=== PATIENT | female | born 2000 ===

== ENCOUNTER 2019-01-24 05:29 | Emergency (ER) | payer BC ==
[2019-01-24 05:42] VITALS: BP 120/80; PULSE 107; TEMP 97.9; BMI 22.3
[2019-01-24] MEDS ORDERED: PHENAZOPYRIDINE HCL 100 MG TABLET (FP) PO ONE (05:53)
[2019-01-24] MEDS ORDERED: PHENAZOPYRIDINE HCL 100 MG TABLET (FP) ONE (05:56)
[2019-01-24] MEDS ORDERED: NITROFURANTOIN MACROCRYSTAL 50 MG CAPSULE (FP) ONE (05:56)
--- NOTE | 2019-01-24 05:58 | PDOC ---
History of Present Illness - General Chief Complaint: Urinary Problem Stated Complaint: URINARY SYMPTOMS Time Seen by Provider: 01/24/19 05:46 History Source: Patient Exam Limitations: No Limitations - History of Present Illness Initial Comments: 01/24/19 05:55 dysuria and frequency Timing/Duration: reports: getting worse Quality: reports: moderate, burning Abdominal Pain Onset Location: reports: suprapubic Pain Radiation: reports: no radiation Activities at Onset: reports: none Treatment Prior to Arrive: worse with: analgesics Aggravating Factors: improves with: Voiding Alleviating Factors: improves with: None Past History - Past Medical History Allergies/Adverse Reactions: Allergies Allergy/AdvReac Type Severity Reaction Status Date / Time No Known Allergies Allergy Verified 01/24/19 05:31 Home Medications: Ambulatory Orders Fluoxetine HCl [Prozac -] 0 mg PO DAILY 01/24/19 Lo Loestrin Fe 1-10 Tablet 0 mg PO DAILY 01/24/19 Nitrofurantoin Monohyd/M-Cryst [Macrobid -] 100 mg PO BID #6 capsule 01/24/19 Phenazopyridine HCl [Pyridium] 200 mg PO TID PRN #6 tablet 01/24/19 COPD: No Other medical history: Pt denies. Comment:: 01/24/19 05:56 denies - Psycho Social/Smoking Cessation Hx Smoking History: Never smoked Have you smoked in the past 12 months: No Information on smoking cessation initiated: No Hx Alcohol Use: No Drug/Substance Use Hx: Yes (Marijuana) Review of Systems - Review of Systems Able to Perform ROS?: Yes : Yes: Burning, Dysuria, Frequency. No: Lesions All Other Systems: Reviewed and Negative *Physical Exam - Vital Signs Last Vital Signs Temp Pulse Resp BP Pulse Ox 97.9 F 107 H 19 120/80 99 01/24/19 05:36 01/24/19 05:36 01/24/19 05:36 01/24/19 05:36 01/24/19 05:36 - Physical Exam General Appearance: Yes: Nourished, Appropriately Dressed HEENT: positive: Normal Voice Respiratory/Chest: positive: Lungs Clear Cardiovascular: positive: Regular Rhythm Gastrointestinal/Abdominal: negative: Tender, Distended, Rebound, Tenderness Musculoskeletal: positive: Normal Inspection Extremity: positive: Normal Capillary Refill Integumentary: positive: Normal Color Neurologic: positive: Fully Oriented Medical Decision Making - Medical Decision Making 01/24/19 05:58 symptoma c/w uti check hcg abx Discharge - Discharge Information Problems reviewed: Yes Clinical Impression/Diagnosis: UTI (urinary tract infection) Qualifiers: Urinary tract infection type: acute cystitis Hematuria presence: without hematuria Qualified Code(s): N30.00 - Acute cystitis without hematuria Condition: Good Disposition: HOME - Follow up/Referral - Patient Discharge Instructions Patient Printed Discharge Instructions: DI for Urinary Tract Infection (UTI) - Post Discharge Activity
[2019-01-24] MEDS ORDERED: NITROFURANTOIN MACROCRYSTAL 50 MG CAPSULE (FP) PO SCH (06:00)
[2019-01-24 06:21] LABS: EPI CELLS 10.4 /HPF (0-5/HPF); PH,URINE 5.5 (5.0-8.0); URINE APPEARANCE TURBID; URINE BACTERIA 216.3 /hpf (NEGATIVE); URINE BILIRUBIN NEGATIVE (NEGATIVE); URINE COLOR YELLOW; URINE GLUCOSE (UA) NEGATIVE (NEGATIVE); URINE KETONE NEGATIVE (NEGATIVE); URINE LEUK ESTERASE 3+ (NEGATIVE); URINE NITRITE NEGATIVE (NEGATIVE); URINE PROTEIN 3+ (NEGATIVE); URINE RBC 522 /hpf (0-4); URINE WBC 4316 /hpf (0-5)
--- NOTE | 2019-01-24 06:25 | PDOC ---
History of Present Illness - General Chief Complaint: Urinary Problem Stated Complaint: URINARY SYMPTOMS Time Seen by Provider: 01/24/19 05:46 Past History - Past Medical History Allergies/Adverse Reactions: Allergies Allergy/AdvReac Type Severity Reaction Status Date / Time No Known Allergies Allergy Verified 01/24/19 05:31 Home Medications: Ambulatory Orders Fluoxetine HCl [Prozac -] 0 mg PO DAILY 01/24/19 Lo Loestrin Fe 1-10 Tablet 0 mg PO DAILY 01/24/19 Nitrofurantoin Monohyd/M-Cryst [Macrobid -] 100 mg PO BID #6 capsule 01/24/19 Phenazopyridine HCl [Pyridium] 200 mg PO TID PRN #6 tablet 01/24/19 COPD: No Other medical history: Pt denies. - Reproductive History Is Patient Now?: No (#): 0 Para: 0 - Psycho Social/Smoking Cessation Hx Smoking History: Never smoked Have you smoked in the past 12 months: No Information on smoking cessation initiated: No Hx Alcohol Use: No Drug/Substance Use Hx: Yes (Marijuana) *Physical Exam - Vital Signs Last Vital Signs Temp Pulse Resp BP Pulse Ox 97.9 F 107 H 19 120/80 99 01/24/19 05:36 01/24/19 05:36 01/24/19 05:36 01/24/19 05:36 01/24/19 05:36 ED Treatment Course - ADDITIONAL ORDERS Additional order review: Laboratory Results 01/24/19 01/24/19 05:48 05:46 Urine Color Yellow Urine Appearance Turbid Urine pH 5.5 Ur Specific [place] 1.024 Urine Protein 3+ H Urine Glucose (UA) Negative Urine Ketones Negative Urine Blood 3+ H Urine Nitrite Negative Urine Bilirubin Negative Urine Urobilinogen 1.0 Ur Leukocyte Esterase 3+ H Urine WBC (Auto) 4316 Urine RBC (Auto) 522 Urine Casts (Auto) 25 U Epithel Cells (Auto) 10.4 Urine Bacteria (Auto) 216.3 Urine HCG, Qual Negative - Medications Given in the ED: ED Medications Discontinued Medications Generic Name Dose Route Start Last Admin Trade Name Freq PRN Reason Stop Dose Admin Phenazopyridine HCl 200 mg 01/24/19 05:53 01/24/19 06:11 Pyridium - PO 01/24/19 05:54 200 mg ONCE ONE Administration Discharge - Discharge Information Problems reviewed: Yes Clinical Impression/Diagnosis: UTI (urinary tract infection) Qualifiers: Urinary tract infection type: acute cystitis Hematuria presence: without hematuria Qualified Code(s): N30.00 - Acute cystitis without hematuria Condition: Good Disposition: HOME - Additional Discharge Information Prescriptions: Nitrofurantoin Monohyd/M-Cryst [Macrobid -] 100 mg PO BID #6 capsule Phenazopyridine HCl [Pyridium] 200 mg PO TID PRN #6 tablet PRN Reason: dysuria - Follow up/Referral Referrals: Kim Valdovinos MD [Staff Physician] - 3 days - Patient Discharge Instructions Patient Printed Discharge Instructions: DI for Urinary Tract Infection (UTI) - Post Discharge Activity
[2019-01-24 06:51] LABS: HYALINE CASTS 0 /lpf (0-8)
== END 2019-01-24 06:33 | disposition home or self-care (01) ==
LOC: FER 05:29
DX: N30.00 Acute cystitis without hematuria (principal); F12.90 Cannabis use, unspecified, uncomplicated
CPT/HCPCS: 36415; 81003; 84703; 87086; 87491; 87591; 99282-25